=== PATIENT | female | born 1985 | race Caucasian/White ===

== ENCOUNTER 2020-05-10 22:19 | Emergency (ER) | payer BC ==
[~2020-05-10] VITALS: Ht 162.6 cm; Wt 127.7 kg
[2020-05-10 22:22] VITALS: TEMP 97.8
[2020-05-10] MEDS ORDERED: PRILOSEC10 MG PO (22:31)
[2020-05-10] MEDS ORDERED: ZYRTEC 10MG10 MG PO (22:31)
[2020-05-10 22:43] LABS: COLLECTION METHOD CLEAN CATCH
[2020-05-10 23:02] LABS: BASO # 0.1 (0.0-0.2); BASO % 0.7 % (0.0-2.0); EOS # 0.4 (0.0-0.7); EOS % 4.4 % (0-4.0); GRAN % 59.2 % (42.2-75.2); HEMATOCRIT 38.6 % (37.0-47.0); HEMOGLOBIN 12.8 g/dl (12.5-16.0); LYMPH # 2.3 (1.2-3.4); LYMPH % 27.1 % (20.0-51.0); MEAN CELL VOLUME 86 fl (80.0-100.0); MEAN CORPUSCULAR HEMOGLOBIN 29 pg (27.0-31.0); MEAN CORPUSCULAR HGB CONC 33 g/dl (33.0-37.0); MEAN PLATELET VOLUME 11.1 fl (7.4-10.4); MONO # 0.7 (0.1-0.6); MONO % 8.4 % (1.7-9.3); PLATELET COUNT 279 K/mm3 (130-400); RED BLOOD COUNT 4.49 M/mm3 (4.10-5.30); REDCELL DISTRIBUTION WIDTH-CV 13.7 % (11.5-14.5)
[2020-05-10 23:25] LABS: PH 6 (5-8); SQUAMOUS EPITHELIAL 0-2 /hpf; URINE APPEARANCE Hazy; URINE BACTERIA Rare /hpf; URINE BILIRUBIN Negative (NEGATIVE); URINE BLOOD 3+ (NEGATIVE); URINE COLOR Red; URINE GLUCOSE Negative (NEGATIVE); URINE KETONE Negative (NEGATIVE); URINE LEUKOCYTE ESTERASE Negative (NEGATIVE); URINE NITRATE Negative (NEGATIVE); URINE PROTEIN(semi-quant) 2+ (NEGATIVE); URINE RBC >50 /hpf; URINE UROBILINOGEN Negative (NEGATIVE)
[2020-05-11] MEDS ORDERED: MACROBID 1100 MG/CAP PO (00:20)
[2020-05-11 00:36] VITALS: BP 126/66; PULSE 80
== END 2020-05-11 00:36 | disposition home or self-care (01) ==
LOC: COL.ER 22:19
PROVIDERS: Emergency Medicine
DX: O20.0 Threatened abortion (principal); O23.41 Unspecified infection of urinary tract in pregnancy, first trimester; Z3A.01 Less than 8 weeks gestation of pregnancy; Z88.1 Allergy status to other antibiotic agents; Z87.891 Personal history of nicotine dependence

== ENCOUNTER 2021-06-08 21:06 | Emergency (ER) | payer BC ==
[~2021-06-08] VITALS: Ht 162.6 cm; Wt 128.2 kg
[~2021-06-08 21:06] MED LIST: MACROBID 1100 MG/CAP PO; PRILOSEC10 MG PO; ZYRTEC 10MG10 MG PO
[2021-06-08 21:16] VITALS: TEMP 97.7
[2021-06-08] MEDS ORDERED: NORCO 325 MG-51 TAB PO (22:24)
[2021-06-08 22:29] VITALS: BP 147/101; PULSE 71
== END 2021-06-08 22:40 | disposition home or self-care (01) ==
LOC: COL.ER 21:06
DX: M54.6 Pain in thoracic spine (principal); Z87.39 Personal history of other diseases of the musculoskeletal system and connective tissue